=== PATIENT | female | born 1945 | race Two or more races ===

== ENCOUNTER 2017-06-05 16:41 | Emergency (ER) | payer MEDICARE, MEDICAID ==
[~2017-06-05] VITALS: Ht 152.4 cm; Wt 80.7 kg
--- NOTE | 2017-06-05 16:48 | NUR ---
pt ambulatory to er bed 10 accompanied by . slip and fall in the bathroom last 05/27/17 fell on her lt side. worsening pain x 2 days. denies head trauma. pt is aao, nad noted. awaiting md elkins.
--- NOTE | 2017-06-05 16:54 | NUR ---
dr leger at bedside for eval.
--- NOTE | 2017-06-05 17:20 | NUR ---
radiology at bedside for l ribs xray.
--- NOTE | 2017-06-05 17:50 | NUR ---
Patient discharged to home in stable condition. Written and verbal after care instructions given. Patient verbalizes understanding of instruction.
[2017-06-05 17:51] VITALS: BP 136/92
== END 2017-06-05 17:52 | disposition home or self-care (01) ==
LOC: ER 16:42
DX: S22.42XA Multiple fractures of ribs, left side, initial encounter for closed fracture (principal); I10 Essential (primary) hypertension; K21.9 Gastro-esophageal reflux disease without esophagitis; Z88.0 Allergy status to penicillin; F17.200 Nicotine dependence, unspecified, uncomplicated; Z98.890 Other specified postprocedural states; W01.0XXA Fall on same level from slipping, tripping and stumbling without subsequent striking against object, initial encounter; Y93.89 Activity, other specified; Y92.89 Other specified places as the place of occurrence of the external cause; Y99.9 Unspecified external cause status
CPT/HCPCS: 71100; 99284; A4606; Z7610